=== PATIENT | female | born 1970 | race Caucasian/White ===

== ENCOUNTER 2017-05-06 05:30 | Day surgery (SDC) | payer OTHER ==
[~2017-05-06] VITALS: Ht 167.6 cm; Wt 74.4 kg
[2017-05-06] MEDS ORDERED: CEFAZOLIN 1 GM IVPB PREMIX 50 ML IV ONE (07:00)
[2017-05-06] MEDS ORDERED: CEFAZOLIN SOD 1 GM in D5W 50 ML IV ONE (07:30)
[2017-05-06] MEDS ORDERED: LR 1,000 ML IV SCH (09:05)
[2017-05-06] MEDS ORDERED: HYDROmorphone 1 MG INJ. 1 MG/ML AMPUL IVP PRN (09:15)
[2017-05-06] MEDS ORDERED: MEPERIDINE HCL/PF 25 MG/ML DISP.SYRIN IVP PRN (09:15)
[2017-05-06] MEDS ORDERED: HYDROmorphone 2 MG/ML VIAL IVP PRN ×2 (09:15)
[2017-05-06] MEDS ORDERED: OXYCODONE/ACETAMINOPHEN 5-325 TABLET PO PRN (10:00)
[2017-05-06] MEDS ORDERED: HYDROcodone/ACETAMIN 5-325 MG TAB (NORCO/ VICODIN) PO PRN (10:00)
[2017-05-06] MEDS ORDERED: ONDANSETRON HCL 4 MG/2 ML VIAL IVP PRN (10:00)
[2017-05-06] MEDS ORDERED: MORPHINE SULFATE 10 MG/ML VIAL IVP PRN (10:00)
[2017-05-06] MEDS ORDERED: MEPERIDINE HCL/PF 25 MG/ML DISP.SYRIN ONE (10:38)
[2017-05-06] MEDS ORDERED: HYDROmorphone 1 MG INJ. 1 MG/ML AMPUL ONE (11:01)
[2017-05-06] MEDS ORDERED: OXYCODONE/ACETAMINOPHEN 5-325 TABLET ONE (12:06)
[2017-05-06 15:15] VITALS: BP_SYST 120
== END 2017-05-06 14:40 | disposition home or self-care (01) ==
LOC: SDS 05:30 → SMU 05:30 → SDS 14:40
PROVIDERS: ATTEND Specialist
DX: D25.2 Subserosal leiomyoma of uterus (principal); N80.0 Endometriosis of uterus; E66.9 Obesity, unspecified; F41.9 Anxiety disorder, unspecified
CPT/HCPCS: 58542; 88307; C1727; J0690 ×2; J1170; J2175; J7060; J7120